=== PATIENT | female | born 1995 | race Caucasian/White ===

== ENCOUNTER 2017-11-02 10:02 | Emergency (ER) | payer OTHER ==
[~2017-11-02] VITALS: Ht 154.9 cm; Wt 71.0 kg
[2017-11-02] MEDS ORDERED: KETOROLAC TROMETHAMINE 30 MG/ML VIAL IVP ONE (12:15)
[2017-11-02] MEDS ORDERED: ONDANSETRON HCL 4 MG/2 ML VIAL IVP ONE (12:15)
[2017-11-02] MEDS ORDERED: METOCLOPRAMIDE HCL 5 MG/ML 2 ML VIAL IVP ONE (12:15)
[2017-11-02 14:37] VITALS: BP 116/72
== END 2017-11-02 14:37 | disposition home or self-care (01) ==
LOC: EMS 10:07
DX: R51 Headache (principal)
CPT/HCPCS: 96374; 96375; 99284; J1885; J2405; J2765

== ENCOUNTER 2017-11-05 19:42 | Emergency (ER) | payer OTHER ==
[~2017-11-05] VITALS: Ht 152.4 cm; Wt 73.5 kg
[2017-11-05] MEDS ORDERED: DEPOP150I IM (19:59)
[2017-11-05 20:16] LABS: BASOPHILS % (AUTO) 0.4 % (0.0-2.0); EOSINOPHILS % (AUTO) 1.4 % (1.0-6.0); HEMATOCRIT 40.8 % (36-46); HEMOGLOBIN 13.8 g/dL (12.0-16.0); LYMPHOCYTES # (AUTO) 1.7 K/uL (1.0-4.8); LYMPHOCYTES % (AUTO) 14.3 % (22.0-44.0); MEAN CORPUSCULAR HEMOGLOBIN 29.9 pg (26.0-34.0); MEAN CORPUSCULAR HGB CONC 33.9 G/dL (31.0-37.0); MEAN CORPUSCULAR VOLUME 88 fL (80-100); MONOCYTES # (AUTO) 0.8 K/uL (0.1-1.0); MONOCYTES % (AUTO) 6.7 % (2.0-9.0); NEUTROPHILS # (AUTO) 9.1 K/uL (1.8-7.7); NEUTROPHILS % (AUTO) 77.2 % (40.0-70.0); PLATELET COUNT (AUTO) 272 K/uL (150-450); RED BLOOD CELL COUNT(AUTO) 4.64 MIL/uL (4.00-5.20); RED CELL DISTRIBUTION WIDTH 13.7 % (11.5-14.5)
[2017-11-05 20:38] LABS: ANION GAP 7 mmol/L (8-16); CARBON DIOXIDE 28 mmol/L (22-29); CHLORIDE 100 mmol/L (98-107); CREATININE 0.74 mg/dL (0.60-1.30); GLOMERULAR FILTR. RATE CALC > 60 mL/min (>60); GLUCOSE,RANDOM 98 mg/dL (70-110); POTASSIUM 3.4 mmol/L (3.5-5.1); SODIUM SERUM 135 mmol/L (136-145); UREA NITROGEN, BLOOD 10 mg/dL (7-18)
[2017-11-05 20:43] LABS: ALANINE AMINOTRANSFERASE 38 U/L (12-78); ALKALINE PHOSPHATASE 112 U/L (46-116); ASPARTATE AMINOTRANSFERASE 29 U/L (15-37); BILIRUBIN,TOTAL 0.4 mg/dL (0.1-1.0); LIPASE 163 U/L (73-393); TOTAL PROTEIN, SERUM 8.3 g/dL (6.4-8.2)
[2017-11-05] MEDS ORDERED: SODIUM CHLORIDE 0.9% 500 ML IV ONE ×2 (20:45)
[2017-11-05 20:51] LABS: APPEARANCE,URINE CLEAR (CLEAR); BILIRUBIN,URINE NEGATIVE (NEGATIVE); GLUCOSE, URINE (UA) NEGATIVE (NEGATIVE); KETONES,URINE NEGATIVE (NEGATIVE); LEUKOCYTE ESTERASE ,URINE SMALL (NEGATIVE); NITRATE,URINE NEGATIVE (NEGATIVE); OCCULT BLOOD,URINE MODERATE (NEGATIVE); PROTEIN,URINE NEGATIVE (NEGATIVE)
[2017-11-05 21:06] LABS: BACTERIA,URINE None Seen /HPF (None Seen); SQUAMOUS EPITHELIAL CELL,UR Few /LPF (None Seen)
[2017-11-05 21:26] LABS: HCG,QUANTITATIVE 9873 mIU/mL (0-6)
[2017-11-05 21:41] LABS: INFLUENZA TYPE A NEGATIVE FOR TYPE A (NEGATIVE); INFLUENZA TYPE B NEGATIVE FOR TYPE B (NEGATIVE)
[2017-11-05 22:48] VITALS: BP 137/82
== END 2017-11-05 22:54 | disposition home or self-care (01) ==
LOC: EMS 19:44
DX: O26.891 Other specified pregnancy related conditions, first trimester (principal); O21.9 Vomiting of pregnancy, unspecified; G43.909 Migraine, unspecified, not intractable, without status migrainosus; Z3A.01 Less than 8 weeks gestation of pregnancy
CPT/HCPCS: 36415; 76801; 76817; 80053; 81001; 83690; 84702; 84703; 85025; 86901; 87804; 96360; 96361; 99285; J7040

== ENCOUNTER 2017-12-15 01:34 | Emergency (ER) | payer OTHER ==
[~2017-12-15] VITALS: Ht 152.4 cm; Wt 71.8 kg
[~2017-12-15 01:34] MED LIST: DEPOP150I IM
[2017-12-15] MEDS ORDERED: PREN1TAB89 PO (01:43)
[2017-12-15 02:01] LABS: BASOPHILS % (AUTO) 0.4 % (0.0-2.0); EOSINOPHILS % (AUTO) 1.1 % (1.0-6.0); HEMATOCRIT 38.3 % (36-46); LYMPHOCYTES # (AUTO) 2.1 K/uL (1.0-4.8); LYMPHOCYTES % (AUTO) 20.6 % (22.0-44.0); MEAN CORPUSCULAR VOLUME 85 fL (80-100); MONOCYTES # (AUTO) 0.7 K/uL (0.1-1.0); MONOCYTES % (AUTO) 6.7 % (2.0-9.0); NEUTROPHILS # (AUTO) 7.4 K/uL (1.8-7.7); NEUTROPHILS % (AUTO) 71.2 % (40.0-70.0); PLATELET COUNT (AUTO) 246 K/uL (150-450); RED CELL DISTRIBUTION WIDTH 12.8 % (11.5-14.5)
[2017-12-15] MEDS: MORPHINE SULFATE 2 MG/ML SYRINGE IVP ONE (02:07)
[2017-12-15] MEDS: ONDANSETRON HCL 4 MG/2 ML VIAL IVP ONE ×2 (02:07→03:48)
[2017-12-15 03:00] VITALS: BP 128/76
[2017-12-15] MEDS: KETOROLAC TROMETHAMINE 30 MG/ML VIAL IVP ONE (03:18)
[2017-12-15] MEDS: ACETAMINOPHEN 500 MG TABLET PO ONE (03:18)
== END 2017-12-15 03:52 | disposition home or self-care (01) ==
LOC: EMS 01:35
DX: O44.11 Complete placenta previa with hemorrhage, first trimester (principal); O16.1 Unspecified maternal hypertension, first trimester; Z3A.09 9 weeks gestation of pregnancy
CPT/HCPCS: 36415; 76801; 76817; 84702; 85025; 86901; 96374; 96375; 96376; 99285; J1885; J2270; J2405

== ENCOUNTER 2023-01-10 13:30 | Emergency (ER) | payer OTHER ==
[~2023-01-10] VITALS: Ht 152.4 cm; Wt 77.3 kg
[~2023-01-10 13:30] MED LIST changes: -DEPOP150I IM; +PREN1TAB89 PO
[2023-01-10] MEDS ORDERED: KETOROLAC TROMETHAMINE 60 MG/2 ML VIAL IM ONE (14:45)
[2023-01-10] MEDS ORDERED: METHOCARBAMOL 500 MG TABLET PO ONE (14:45)
[2023-01-10] MEDS ORDERED: METH-659 PO (15:46)
[2023-01-10] MEDS ORDERED: IBUP-1492 PO (15:47)
[2023-01-10 16:17] VITALS: BP 120/72
== END 2023-01-10 16:54 | disposition home or self-care (01) ==
LOC: EMS 13:33
DX: S16.1XXA Strain of muscle, fascia and tendon at neck level, initial encounter (principal); X58.XXXA Exposure to other specified factors, initial encounter; Y93.89 Activity, other specified; Y92.89 Other specified places as the place of occurrence of the external cause; Y99.8 Other external cause status
CPT/HCPCS: 99283; 96372; J1885

== ENCOUNTER 2024-03-28 18:26 | Emergency (ER) | payer MEDICAID, OTHER ==
[~2024-03-28] VITALS: Ht 154.9 cm; Wt 79.5 kg
[~2024-03-28 18:26] MED LIST changes: +IBUP-1492 PO; +METH-659 PO; -PREN1TAB89 PO
[2024-03-28 18:32] VITALS: TEMP 100
[2024-03-28 18:48] LABS: BASOPHILS % (AUTO) 0.1 % (0.0-2.0); EOSINOPHILS % (AUTO) 0.1 % (1.0-6.0); HEMATOCRIT 43.7 % (36-46); HEMOGLOBIN 14.6 g/dL (12.0-16.0); LYMPHOCYTES # (AUTO) 0.3 K/uL (1.0-4.8); LYMPHOCYTES % (AUTO) 2.4 % (22.0-44.0); MEAN CORPUSCULAR HEMOGLOBIN 30.3 pg (26.0-34.0); MEAN CORPUSCULAR HGB CONC 33.5 G/dL (31.0-37.0); MEAN CORPUSCULAR VOLUME 91 fL (80-100); MONOCYTES # (AUTO) 0.2 K/uL (0.1-1.0); MONOCYTES % (AUTO) 1.8 % (2.0-9.0); NEUTROPHILS # (AUTO) 10.9 K/uL (1.8-7.7); PLATELET COUNT (AUTO) 276 K/uL (150-450); RED BLOOD CELL COUNT(AUTO) 4.82 MIL/uL (4.00-5.20); RED CELL DISTRIBUTION WIDTH 12.3 % (11.5-14.5); WHITE BLOOD COUNT (AUTO) 11.4 K/uL (4.5-11.0)
[2024-03-28 18:49] LABS: NEUTROPHILS % (AUTO) 95.6 % (40.0-70.0)
[2024-03-28 19:05] LABS: ANION GAP 9 mmol/L (8-16); CALCIUM, TOTAL 9.2 mg/dL (8.8-10.5); CARBON DIOXIDE 28 mmol/L (22-29); CHLORIDE 99 mmol/L (98-107); GLOMERULAR FILTR. RATE CALC > 60 mL/min (>60); GLUCOSE,RANDOM 110 mg/dL (70-110); PLATELET MORPHOLOGY COMMENT GIANT PLTS PRESENT; POTASSIUM 4.1 mmol/L (3.5-5.1); RBC MORPHOLOGY COMMENT NORMAL RBC MORPH; SODIUM SERUM 136 mmol/L (136-145); UREA NITROGEN, BLOOD 8 mg/dL (7-18)
[2024-03-28 19:07] LABS: COVID AG,FIA SOURCE NASAL SWAB
[2024-03-28 19:25] LABS: SARS-COV2 (COVID) ANTIGEN,FIA Negative (Negative)
[2024-03-28] MEDS: ONDANSETRON HCL 4 MG/2 ML VIAL IVP ONE (19:25)
[2024-03-28] MEDS: SODIUM CHLORIDE 0.9% 1,000 ML IV ONE (19:25)
[2024-03-28 19:51] LABS: HCG,QUANTITATIVE 2 mIU/mL (0-6); LIPASE 32 U/L (16-77)
[2024-03-28 20:29] LABS: INFLUENZA TYPE A NEGATIVE FOR TYPE A (NEGATIVE); INFLUENZA TYPE B NEGATIVE FOR TYPE B (NEGATIVE)
[2024-03-28] MEDS: ACETAMINOPHEN 325 MG TABLET PO ONE (20:38)
[2024-03-28 20:58] LABS: APPEARANCE,URINE HAZY (CLEAR); BILIRUBIN,URINE NEGATIVE (NEGATIVE); COLOR,URINE YELLOW (YELLOW); GLUCOSE, URINE (UA) NEGATIVE (NEGATIVE); KETONES,URINE 40-60 mg/dL (NEGATIVE); LEUKOCYTE ESTERASE ,URINE NEGATIVE (NEGATIVE); NITRATE,URINE NEGATIVE (NEGATIVE); OCCULT BLOOD,URINE SMALL (NEGATIVE); PROTEIN,URINE NEGATIVE (NEGATIVE); SPECIFIC GRAVITIY, URINE 1.023 (1.003-1.030)
[2024-03-28 21:07] LABS: BACTERIA,URINE Rare /HPF (None Seen); SQUAMOUS EPITHELIAL CELL,UR Many /LPF (None Seen); WBC,URINE 0-2 /HPF (0-5)
[2024-03-28] MEDS: KETOROLAC TROMETHAMINE 30 MG/ML VIAL IVP ONE (21:30)
[2024-03-28 22:20] VITALS: BP 114/51; PULSE 94; RESP 16
[2024-03-28] MEDS ORDERED: ONDA-104 PO (23:08)
[2024-03-28] MEDS ORDERED: IBUP-1492 PO (23:08)
[2024-03-28] MEDS ORDERED: AMOX-457 PO (23:08)
[2024-03-28] MEDS ORDERED: HYDR-4062 PO (23:08)
[2024-03-28] MEDS: MORPHINE SULFATE 2 MG/ML SYRINGE IVP ONE (23:11)
== END 2024-03-28 23:32 | disposition home or self-care (01) ==
LOC: EMS 18:26
DX: N20.0 Calculus of kidney (principal); J32.9 Chronic sinusitis, unspecified; Z20.822 Contact with and (suspected) exposure to COVID-19
CPT/HCPCS: 99285; 74176; 96374; 96375; 96361; 87426; 80048; 81001; 83690; 84702; 85025; 87804; 36415; J1885; J2270; J2405; J7030